=== PATIENT | male | born 1970 | race Two or more races ===

== ENCOUNTER 2021-09-18 23:21 | Inpatient (IN) | payer OTHER ==
[~2021-09-18] VITALS: Ht 170.2 cm; Wt 59.0 kg
--- NOTE | 2021-09-18 23:24 | NUR ---
Patient walked into ER c/o lower abdominal pain that started yesterday but started to get worse this afternoon.
--- NOTE | 2021-09-18 23:55 | NUR ---
Dr. Garcia at bedside for MSE.
[2021-09-19] MEDS ORDERED: PIPERACILLIN SODIUM/TAZOBACTAM 3.375 G in IV DEXTROSE 5% 50 ML IV ONE ×2
[2021-09-19] MEDS ORDERED: IV NORMAL SALINE 1000 ML BAG IV ONE
[2021-09-19] MEDS ORDERED: ONDANSETRON 4 MG/2 ML VIAL IV ONE
[2021-09-19] MEDS ORDERED: HYDROMORPHONE 1 MG/1 ML DISP.SYRIN ONE ×2 (00:05→02:03)
[2021-09-19] MEDS ORDERED: ONDANSETRON 4 MG/2 ML VIAL ONE ×2 (00:05→11:39)
[2021-09-19] MEDS ORDERED: PIPERACILLIN/TAZOBACTAM/D5W 50 ML IV ONE (00:05)
[2021-09-19 00:14] LABS: MEAN CORPUSCULAR HEMOGLOBIN 30.5 uug (23.8-33.4); MEAN CORPUSCULAR VOLUME 88.8 fL (73.0-96.2); PLATELET COUNT (AUTO) 219 K/uL (152-348)
[2021-09-19 00:36] LABS: BILIRUBIN,DIRECT 0.2 mg/dL (0.0-0.2); CREATININE 1.1 mg/dL (0.6-1.3); POTASSIUM 3.6 mmol/L (3.5-5.1); TOTAL PROTEIN, SERUM 8.4 g/dL (6.4-8.2)
[2021-09-19] MEDS ORDERED: IV NORMAL SALINE 250 ML IV ONE (00:52)
[2021-09-19] MEDS ORDERED: SWABABLE VALVE TRANSFER SET EA MC ONE (00:52)
[2021-09-19] MEDS ORDERED: IOHEXOL 300MG/ML 100 ML INFUS..BTL ONE (00:52)
--- NOTE | 2021-09-19 01:06 | NUR ---
pt was taken for cat scan.
--- NOTE | 2021-09-19 01:22 | NUR ---
pt returned from cat scan.
[2021-09-19] MEDS ORDERED: IV NS 1000 ML 1,000 ML IV ONE (02:00)
[2021-09-19] MEDS ORDERED: HYDROMORPHONE 1 MG/1 ML DISP.SYRIN IV ONE ×2 (02:00)
--- NOTE | 2021-09-19 03:23 | NUR ---
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
--- NOTE | 2021-09-19 03:24 | NUR ---
Dr. Kraft called back, speaking with Dr. Garcia.
--- NOTE | 2021-09-19 03:27 | NUR ---
call placed to Dr. Jha general surgery. Dr. Garcia speaking with this doctor.
[2021-09-19] MEDS ORDERED: ONDANSETRON 4 MG/2 ML VIAL IV PRN (03:30)
[2021-09-19] MEDS ORDERED: ACETAMINOPHEN 325 MG TABLET PO PRN (03:30)
[2021-09-19] MEDS ORDERED: hydrALAZINE HCL 20 MG/1 ML VIAL IV PRN (03:30)
--- NOTE | 2021-09-19 03:58 | NUR ---
report given to Will RN pt to go to room 320.
[2021-09-19 04:25] VITALS: BP 101/64
--- NOTE | 2021-09-19 04:33 | NUR ---
pt transported via w/c to room 320 with all belongings Rn Will aware of pt's arrival.
--- NOTE | 2021-09-19 05:23 | NUR ---
ADMITTED PATIENT ON MED SURG FLOOR UNDER THE CARE OF DR WARREN, PATIENT ALERT ORIENTED, CONTINENT, COMPLAIN OF SOME DISCOMFORT/ ABD PAIN, PATIENT HAD PAIN MEDS GIVEN FROM ER TWO HOURS AGO. PATIENT HAS NO MEDICAL HISTORY, TAUGHT THAT HE'S NPO AT THIS TIME, ORIENTED TO ROOM, AND CALL LIGHTS. CONT TO MONITOR.
[2021-09-19] MEDS ORDERED: CEFEPIME HCL 1 G VIAL ONE (05:26)
[2021-09-19] MEDS ORDERED: CEFEPIME HCL 1 G in IV DEXTROSE 5% 50 ML IV SCH (06:00)
--- NOTE | 2021-09-19 06:42 | NUR ---
DR CHICHI Gallo, CALLED AND ORDERED TO OBTAIN CONSENT FOR SURGERY LAP APPENDECTOMY POSS EXPLORATORY, PATIENT ALERT ORIENTED, AND CONSENTED AND SIGNED THE CONSENT. STATED THAT PATIENT SURGERY WOULD BE BETWEEN 0800 TO 0830. PATIENT REMAINS NPO. CONT TO MONITOR.
[2021-09-19] MEDS ORDERED: LIDOCAINE 1%-EPI 1:100,000 20 ML VIAL ONE (07:04)
[2021-09-19] MEDS ORDERED: BUPIVACAINE 0.25% 30 ML VIAL ONE (07:04)
[2021-09-19] MEDS ORDERED: BUPIVACAINE/EPI PF 0.5% 10 ML VIAL ONE (07:10)
[2021-09-19] MEDS ORDERED: LIDOCAINE HCL 1% 20 ML VIAL ONE (07:10)
[2021-09-19 08:40] VITALS: BP 125/73
--- NOTE | 2021-09-19 08:43 | NUR ---
Pt is a/o x 4. Pt has been taken for surgery laparoscopic appendectomy with possible open exploratory. Pts vitals: 125/73 HR 83, 100.1 F temp, SpO2 97% on room air.
[2021-09-19] MEDS ORDERED: MIDAZOLAM HCL 10 MG/2 ML VIAL ONE (09:30)
[2021-09-19] MEDS ORDERED: HYDROMORPHONE 2 MG/1 ML DISP.SYRIN ONE (09:30)
[2021-09-19] MEDS ORDERED: ROCURONIUM BROMIDE 50 MG/5 ML VIAL ONE (09:30)
[2021-09-19] MEDS ORDERED: NEOMY/BACITRAC/POLYMI OINT 28.35 GM TUBE ONE (10:25)
[2021-09-19] MEDS ORDERED: PROPOFOL 200 MG/20 ML BOTTLE ONE (11:39)
[2021-09-19] MEDS ORDERED: GLYCOPYRROLATE 0.2 MG/ML VIAL ONE (11:39)
[2021-09-19] MEDS ORDERED: DEXAMETHASONE SOD PHOSPHATE 4 MG INJ ONE (11:39)
[2021-09-19] MEDS ORDERED: LIDOCAINE-MPF 2% 5 ML VIAL ONE (11:39)
[2021-09-19] MEDS ORDERED: SUCCINYLCHOLINE CHLORIDE 200 MG/10 ML VIAL ONE (11:39)
[2021-09-19] MEDS ORDERED: KETOROLAC TROMETHAMINE 30 MG INJ ONE (11:39)
[2021-09-19] MEDS ORDERED: NEOSTIGMINE METHYLSULFATE 10 MG/10 ML VIAL ONE (11:39)
[2021-09-19 12:09] VITALS: BP 101/54
--- NOTE | 2021-09-19 12:10 | NUR ---
Pt has returned from surgery. Family at bedside. Pt's vitals: BP 101/54 HR 76 rr 18 SpO2 99% on 2L NC, 98.5 F temp. Comfort measures provided. Pt to be only on ice chips for the rest of today and may be placed on clear liquid diet starting tomorrow 09/20/21. three laparoscopic surgical sites noted, dressing intact. Will continue to monitor.
[2021-09-19 12:30] VITALS: BP 109/69
[2021-09-19 12:47] VITALS: BP 109/65
[2021-09-19] MEDS: PIPERACILLIN SODIUM/TAZOBACTAM 3.375 G in IV DEXTROSE 5% 50 ML IV SCH ×2 (13:22→18:30)
[2021-09-19] MEDS: IV LACTATED RINGERS SOLUTION 1,000 ML IV PRN ×2 (13:23→18:45)
[2021-09-19] MEDS ORDERED: diphenhydrAMINE 50 MG/1 ML VIAL ONE (13:30)
[2021-09-19 15:05] VITALS: BP 108/57
[2021-09-19] MEDS: MORPHINE SULFATE 2 MG/1 ML DISP.SYRIN IV PRN ×2 (16:04→21:23)
--- NOTE | 2021-09-19 18:28 | NUR ---
Pt a/ox 4, complains of abdominal pain from time to time while coughing or laughing. Pt has been afebrile post surgery. Compliant with care, no acute distress. Pt's family at bedside. Comfort measures provided, call light within reach.
[2021-09-20] MEDS: PIPERACILLIN SODIUM/TAZOBACTAM 3.375 G in IV DEXTROSE 5% 50 ML IV SCH ×4 (00:16→17:58)
[2021-09-20] MEDS: IV LACTATED RINGERS SOLUTION 1,000 ML IV PRN (02:00)
[2021-09-20] MEDS: MORPHINE SULFATE 2 MG/1 ML DISP.SYRIN IV PRN (02:32)
[2021-09-20 04:20] VITALS: BP 97/59
[2021-09-20 07:32] LABS: HEMATOCRIT 34.9 % (36.7-47.1); MEAN CORPUSCULAR HEMOGLOBIN 31.5 uug (23.8-33.4); MEAN CORPUSCULAR VOLUME 90.5 fL (73.0-96.2); PLATELET COUNT (AUTO) 160 K/uL (152-348)
[2021-09-20 07:43] LABS: BILIRUBIN,TOTAL 1.1 mg/dL (0.2-1.0); CREATININE 1.2 mg/dL (0.6-1.3); PHOSPHOROUS 2.9 mg/dL (2.5-4.9); POTASSIUM 3.8 mmol/L (3.5-5.1); TOTAL PROTEIN, SERUM 6.5 g/dL (6.4-8.2)
[2021-09-20 08:20] VITALS: BP 105/58
[2021-09-20] MEDS ORDERED: HYDROCODONE/APAP 5-325MG TABLET PO PRN (08:45)
[2021-09-20] MEDS ORDERED: MORPHINE SULFATE 2 MG/1 ML DISP.SYRIN IV PRN (09:00)
[2021-09-20] MEDS: ENOXAPARIN SODIUM 40 MG/0.4 ML DISP.SYRIN SQ SCH (09:12)
--- NOTE | 2021-09-20 09:28 | NUR ---
Pt is a/o x 4. pt was placed on clear liquid diet, tolerating well. Will advance diet as tolerated per MD order. Pt ambulatory at this time, has passed gas but complains of bloating and discomfort. PT eval ordered to get pt moving more. Comfort measures provided, call light within reach. Will continue to monitor.
[2021-09-20 12:00] VITALS: BP 128/83
[2021-09-20] MEDS: MORPHINE SULFATE 4 MG/1 ML DISP.SYRIN IV PRN ×2 (12:31→20:48)
--- NOTE | 2021-09-20 15:32 | NUR ---
advanced diet to mechanical soft diet per MD order. Pt tolerated clear liquids well, he is passing gas, no nausea vomiting reported.
[2021-09-20 16:00] VITALS: BP 122/76
[2021-09-20] MEDS: OXYCODONE/APAP 5-325 MG TABLET PO PRN (16:33)
[2021-09-20 20:24] VITALS: BP 114/73
--- NOTE | 2021-09-20 23:00 | NUR ---
Patient able to ambulate about 10 times around unit with stand by assist. Patient states he felt better post ambulation and pain had decreased. Able to eat an orange at bedside and drinks liquids well. Bowel sounds active, appetite is improved.
[2021-09-21] MEDS: PIPERACILLIN SODIUM/TAZOBACTAM 3.375 G in IV DEXTROSE 5% 50 ML IV SCH ×2 (00:36→06:18)
--- NOTE | 2021-09-21 01:00 | NUR ---
Patient requested to have pain medication, made aware Morphine is every 4 hours PRN, states he will wait for medication. Upon return of this RN he states he was able to ambulate to the bathroom and had a good bowel movement. Pain is now relieved and refused Morphine. Morphine wasted per policy with 2nd RN.
[2021-09-21 04:24] VITALS: BP 95/63
--- NOTE | 2021-09-21 06:50 | NUR ---
Patient alert oriented, no complain of pain, tolerate current diet, had bowel movement, did many laps of walking on the hallways last night, stated he feels better and no pain at this time, cont to monitor.
[2021-09-21] MEDS ORDERED: ONDA4TAB5 PO (07:29)
[2021-09-21] MEDS ORDERED: OXYC-128 PO (07:29)
[2021-09-21] MEDS ORDERED: AMOX-430 PO (07:29)
--- NOTE | 2021-09-21 07:57 | NUR ---
Received pt up walking in the hallway holding on to Iv stand with steady gait. Being seen by TATUM Dominguez. No ss of pain or sob noted. Patient states he's ok safety measures in place. Kept comfortable.
[2021-09-21] MEDS: ENOXAPARIN SODIUM 40 MG/0.4 ML DISP.SYRIN SQ SCH (08:30)
[2021-09-21] MEDS ORDERED: DOCUSATE SODIUM 100 MG CAPSULE PO SCH (09:00)
[2021-09-21] MEDS: OXYCODONE/APAP 5-325 MG TABLET PO PRN (10:01)
[2021-09-21 12:00] VITALS: BP 95/59
--- NOTE | 2021-09-21 12:16 | NUR ---
TATUM Dominguez made aware of bp 95/59 hr68 stated it's fine no new order received. Pt asymptomatic
[2021-09-21] MEDS ORDERED: PIPERACILLIN SODIUM/TAZOBACTAM 3.375 G in IV DEXTROSE 5% 100 ML IV SCH (14:00)
[2021-09-21 16:00] VITALS: BP 95/71
[2021-09-21] MEDS: MORPHINE SULFATE 4 MG/1 ML DISP.SYRIN IV PRN (17:04)
--- NOTE | 2021-09-21 17:30 | NUR ---
patient still waiting for his sister to pick him up.
--- NOTE | 2021-09-21 18:47 | NUR ---
picked up by twin sister in stable condition via private car. both verbalized understanding of discharge instructions.
== END 2021-09-21 18:49 | disposition home or self-care (01) | DRG 342 ==
LOC: EDBD 23:26 → ER 23:26 → MEDSURG3 09-19 03:25
PROVIDERS: ADMIT Nurse Practitioner Acute Care; ATTEND Nurse Practitioner Acute Care
PROC: 0DTJ4ZZ Resection of Appendix, Percutaneous Endoscopic Approach (ICD-10-PCS; principal; 2021-09-19)
DX: K35.891 Other acute appendicitis without perforation, with gangrene (principal); E87.2 Acidosis; R73.9 Hyperglycemia, unspecified; D72.829 Elevated white blood cell count, unspecified; Z20.822 Contact with and (suspected) exposure to COVID-19
CPT/HCPCS: 36415; 71045; 83605; 83690; 84100; 85025; 87040; 93005; 97161; A4663; G0378; J0330; J0692; J1100; J1170; J1200; J1650; J1885; J2250; J2270; J2405; J2543; J3490; J7040; J7120; L8699; Q9967